=== PATIENT | male | born 1995 | race American Indian/Alaskan Native ===

== ENCOUNTER 2020-09-19 14:06 | Emergency (ER) | payer MEDICAID, OTHER ==
[2020-09-19] MEDS ORDERED: Acetaminophen 325 MG Tab PO ONE (14:19)
[2020-09-19] MEDS ORDERED: Amoxicillin/Clavulanate K 875-125 MG Tab PO ONE (14:20)
[2020-09-19 14:21] VITALS: BP 159/90; PULSE 88
--- NOTE | 2020-09-19 14:26 | EDM.PDOC ---
ED HPI GENERAL MEDICAL PROBLEM - General Chief Complaint: ENT Problem Stated Complaint: NASAL INFECTION Time Seen by Provider: 09/19/20 14:15 Source of Information: Reports: Patient History Limitations: Reports: No Limitations - History of Present Illness INITIAL COMMENTS - FREE TEXT/NARRATIVE: This 25 yo male patient reports to the ED with right sided facial pain and right sided nasal swelling. The patient reports his symptoms started 3-4 days ago and have been getting worse. The patient has not been seen and has not taken anything for temporary symptom relief. The patient reports no known allergies. Onset Date: 09/15/20 Duration: Constant, Getting Worse Location: Reports: Face (right side of face and right nare) Quality: Reports: Ache, Throbbing Severity: Moderate Improves with: Reports: None Worsens with: Reports: None Context: Reports: Other Associated Symptoms: Reports: No Other Symptoms - Related Data Allergies Allergy/AdvReac Type Severity Reaction Status Date / Time No Known Allergies Allergy Verified 02/05/15 17:02 Home Meds: Home Meds . [No Known Home Meds] 02/06/14 [History] Past Medical History - Past Health History Medical/Surgical History: Denies Medical/Surgical History Social & Family History - Living Situation & Occupation Living situation: Reports: with Family ED ROS ENT - Review of Systems Review Of Systems: Comprehensive ROS is negative, except as noted in HPI. ED EXAM, ENT - Physical Exam Exam: See Below Exam Limited By: No Limitations General Appearance: Alert, WD/WN, Moderate Distress Eye Exam: Bilateral Eye: EOMI, Normal Inspection, PERRL Ears: Normal External Exam, Normal Canal, Hearing Grossly Normal, Normal TMs Nose: Nasal Swelling (right side), Nasal Tenderness (right side) Mouth/Throat: Normal Inspection, Normal Gums, Normal Lips, Normal Oropharynx, Normal Teeth Head: Facial Tenderness (right side), Sinus Tenderness (right side) Neck: Normal Inspection, Supple, Non-Tender, Full Range of Motion Respiratory/Chest: No Respiratory Distress, Lungs Clear, Normal Breath Sounds, No Accessory Muscle Use, Chest Non-Tender Cardiovascular: Normal Peripheral Pulses, Regular Rate, Rhythm, No Edema, No Gallop, No JVD, No Murmur, No Rub GI/Abdominal: Normal Bowel Sounds, Soft, Non-Tender, No Organomegaly, No Distention, No Abnormal Bruit, No Mass (Male) Exam: Deferred Rectal (Males) Exam: Deferred Back: Normal Inspection, Full Range of Motion Extremities: Normal Inspection, Normal Range of Motion, Non-Tender, No Pedal Edema, Normal Capillary Refill Neurological: Alert, Oriented, CN II-XII Intact, Normal Cognition, Normal Gait, Normal Reflexes, No Motor/Sensory Deficits Psychiatric: Normal Affect, Normal Mood Skin: Warm, Dry, Intact, Normal Color, No Rash Lymphatic: No Adenopathy Course - Vital Signs Last Recorded V/S: Last Vital Signs Temp 36.7 C 09/19/20 14:16 Pulse 88 09/19/20 14:16 Resp 16 09/19/20 14:16 BP 159/90 H 09/19/20 14:16 Pulse Ox 99 09/19/20 14:16 - Orders/Labs/Meds Meds: Medications Discontinued Medications Generic Name Dose Route Start Last Admin Trade Name Shakir PRN Reason Stop Dose Admin Acetaminophen 650 mg 09/19/20 14:19 09/19/20 14:26 Tylenol PO 09/19/20 14:20 650 mg NOW ONE Administration Amoxicillin/Clavulanate Potassium 1 tab 09/19/20 14:20 09/19/20 14:26 Augmentin 875 Mg/125 Mg PO 09/19/20 14:21 1 tab ONETIME ONE Administration Departure - Departure Time of Disposition: 14:23 Disposition: Home, Self-Care 01 Condition: Fair Clinical Impression: Right maxillary sinusitis - Discharge Information *PRESCRIPTION DRUG MONITORING PROGRAM REVIEWED*: Not Applicable *COPY OF PRESCRIPTION DRUG MONITORING REPORT IN PATIENT SHARAD: Not Applicable Instructions: Sinusitis, Adult, [id number] Forms: ED Department Discharge Care Plan Goals: The patient was advised of the examination results during the visit. The patient was given an oral dose of Tylenol and Augmentin while in the ED. The patient was discharged with a script for Augmentin 875/125) to take 1 by mouth 2 times per day for 10 days. The patient was encouraged to take Tylenol and ibuprofen as directed for temporary symptom relief. If the patient has any additional symptoms or concerns, the patient should either return to the emergency department or visit his primary care facility. Sepsis Event Note (ED) - Evaluation Sepsis Screening Result: No Definite Risk - Focused Exam Vital Signs: Vital Signs Temp Pulse Resp BP Pulse Ox 09/19/20 14:16 36.7 C 88 16 159/90 H 99
== END 2020-09-19 14:41 | disposition home or self-care (01) ==
LOC: DL.ED 14:06
DX: J01.00 Acute maxillary sinusitis, unspecified (principal)
CPT/HCPCS: 99283; A9270